=== PATIENT | male | born 1995 ===

== ENCOUNTER 2018-04-22 22:06 | Emergency (ER) | payer MEDICAID, OTHER | END 2018-04-23 00:15 | disposition left against medical advice (07) | LOC: DL.ED 22:06 | DX: Z53.21 Procedure and treatment not carried out due to patient leaving prior to being seen by health care provider (principal) ==

== ENCOUNTER 2018-04-23 11:21 | Emergency (ER) | payer MEDICAID, OTHER ==
[2018-04-23 11:30] VITALS: BP 130/75
--- NOTE | 2018-04-23 11:41 | EDM.PDOC ---
ED HPI GENERAL MEDICAL PROBLEM - General Chief Complaint: Chest Pain Stated Complaint: CHEST PAIN Time Seen by Provider: 04/23/18 11:40 Source of Information: Reports: Patient, RN, RN Notes Reviewed History Limitations: Reports: No Limitations - History of Present Illness INITIAL COMMENTS - FREE TEXT/NARRATIVE: Pt presents to ER from home by POV with c/o sharp chest pain that began yesterday while he was driving a car. When the pain began he felt like he had a slight fever, and felt slightly lightheaded. He states he has had a very slight cough, but no wheezing or sputum production. The chest pain is very sharp and is worse with breathing, coughing, and movement. Denies abdominal pain, leg/ calf pain or swelling, palpitations, shortness of breath, or syncope. Onset Date: 04/22/18 Duration: Constant, Waxing/Waning Location: Reports: Chest Quality: Reports: Sharp Severity: Severe Improves with: Reports: Other (swallow breathing) Worsens with: Reports: Breathing, Movement Context: Denies: Sick Contact Associated Symptoms: Reports: No Other Symptoms Mid-Sternal Chest Pain Score (Numeric/FACES): 10 - Related Data Allergies Allergy/AdvReac Type Severity Reaction Status Date / Time No Known Allergies Allergy Verified 04/23/18 11:30 Home Meds: Home Meds . [No Known Home Meds] 04/23/15 [History] Past Medical History - Past Health History Medical/Surgical History: Denies Medical/Surgical History Social & Family History - Family History Family Medical History: Noncontributory - Tobacco Use Smoking Status *Q: Never Smoker Second Hand Smoke Exposure: Yes - Alcohol Use Alcohol Use History: No - Recreational Drug Use Recreational Drug Use: No - Living Situation & Occupation Living situation: Reports: with Family Occupation: Student ED ROS GENERAL - Review of Systems Review Of Systems: ROS reveals no pertinent complaints other than HPI. ED EXAM, GENERAL - Physical Exam Exam: See Below Exam Limited By: No Limitations General Appearance: Alert, WD/WN, No Apparent Distress, Anxious Eye Exam: Bilateral Eye: Normal Inspection Ears: Normal External Exam, Normal Canal, Hearing Grossly Normal, Normal TMs Nose: Normal Inspection, Normal Mucosa, No Blood Throat/Mouth: Normal Inspection, Normal Lips, Normal Teeth, Normal Gums, Normal Oropharynx, Normal Voice, No Airway Compromise Head: Atraumatic, Normocephalic Neck: Normal Inspection, Supple, Non-Tender, Full Range of Motion. No: Lymphadenopathy (L), Lymphadenopathy (R) Respiratory/Chest: No Respiratory Distress, No Accessory Muscle Use, Decreased Breath Sounds, Splinting, Other (chest pain is reproduced by palpation). No: Crackles, Rales, Rhonchi, Wheezing, Stridor Cardiovascular: Normal Peripheral Pulses, Regular Rate, Rhythm, No Edema, No Gallop, No JVD, No Murmur, No Rub GI/Abdominal: Normal Bowel Sounds, Soft, Non-Tender, No Organomegaly, No Distention, No Abnormal Bruit, No Mass Back Exam: Normal Inspection, Full Range of Motion, NT Extremities: Normal Inspection, Normal Range of Motion, Non-Tender, No Pedal Edema, Normal Capillary Refill. No: Joint Swelling, Popeye's Sign Neurological: Alert, Oriented, CN II-XII Intact, Normal Cognition, Normal Gait, No Motor/Sensory Deficits Psychiatric: Anxious Skin Exam: Warm, Dry, Intact, Normal Color, No Rash EKG INTERPRETATION EKG Date: 04/23/18 Time: 11:28 Rhythm: Other (SR) [place]: Normal P-Wave: Present QRS: Normal ST-T: Normal QT: Normal Comparison: NA - No Prior EKG Course - Vital Signs Last Recorded V/S: Last Vital Signs Temp 37.3 C 04/23/18 11:25 Pulse 65 04/23/18 11:25 Resp 18 04/23/18 11:25 BP 130/75 04/23/18 11:25 Pulse Ox 100 04/23/18 11:25 - Orders/Labs/Meds Orders: Active Orders 24 hr Category Date Time Status EKG 12 Lead [EKG Documentation Completion] [RC] STAT Care 04/23/18 11:35 Active Peripheral IV Care [RC] . DIRECTED Care 04/23/18 11:55 Active CULTURE STREP A CONFIRMATION [] Stat Lab 04/23/18 12:10 Results DRUG SCREEN URINE BIORAD [URCHEM] Stat Lab 04/23/18 11:55 Ordered STREP SCRN A RAPID W CULT CONF [RM] Stat Lab 04/23/18 12:10 Results UA W/MICROSCOPIC [URIN] Stat Lab 04/23/18 11:54 Ordered Sodium Chloride 0.9% [Saline Flush] Med 04/23/18 11:55 Active 10 ml FLUSH ASDIRECTED PRN Peripheral IV Insertion Adult [OM.PC] Stat Oth 04/23/18 11:54 Ordered Medication Orders Sodium Chloride (Saline Flush) 10 ml FLUSH ASDIRECTED PRN PRN Reason: Keep Vein Open Labs: Laboratory Tests 04/23/18 04/23/18 04/23/18 Range/Units 12:06 12:06 12:06 WBC 6.4 (5.0-10.0) 10^3/uL RBC 4.87 (4.6-6.2) 10^6/uL Hgb 15.5 (14.0-18.0) g/dL Hct 44.2 (40.0-54.0) % MCV 90.8 (80-100) fL MCH 31.8 (27.0-34.0) pg MCHC 35.1 H (33.0-35.0) g/dL Plt Count 272 (150-450) 10^3/uL Neut % (Auto) 75.8 H (42.2-75.2) % Lymph % (Auto) 14.3 L (20.5-50.1) % [place] % (Auto) 8.3 H (2-8) % Eos % (Auto) 1.1 (1.0-3.0) % Baso % (Auto) 0.5 (0.0-1.0) % D-Dimer, Quantitative < 100 (0-400) ng/mL Sodium 135 (135-145) mmol/L Potassium 3.3 L (3.6-5.0) mmol/L Chloride 104 (101-111) mmol/L Carbon Dioxide 20.0 L (21.0-31.0) mmol/L Anion Gap 14.3 BUN 9 (7-18) mg/dL Creatinine 0.9 (0.6-1.3) mg/dL Est Cr Clr Drug Dosing 126.61 mL/min Estimated GFR (MDRD) > 60 BUN/Creatinine Ratio 10.00 Glucose 102 (74-105) mg/dL Calcium 8.8 (8.4-10.2) mg/dl Total Bilirubin 1.4 H (0.2-1.0) mg/dL AST 24 (10-42) IU/L ALT 15 (10-60) IU/L Alkaline Phosphatase 73 (42-121) IU/L Troponin I < 0.02 (0.00-0.02) ng/ml Total Protein 7.1 (6.7-8.2) g/dl Albumin 4.1 (3.2-5.5) g/dl Globulin 3.0 Albumin/Globulin Ratio 1.37 Meds: Medications Generic Name Dose Route Start Last Admin Trade Name Valentin PRN Reason Stop Dose Admin Sodium Chloride 10 ml 04/23/18 11:55 Saline Flush FLUSH ASDIRECTED PRN Keep Vein Open Discontinued Medications Generic Name Dose Route Start Last Admin Trade Name Freq PRN Reason Stop Dose Admin Sodium Chloride 1,000 mls @ 999 mls/hr 04/23/18 11:55 04/23/18 13:33 Normal Saline IV 04/23/18 12:55 999 mls/hr .BOLUS ONE Administration Ketorolac Tromethamine 30 mg 04/23/18 11:55 04/23/18 13:33 Toradol IVPUSH 04/23/18 11:56 30 mg ONETIME ONE Administration Methylprednisolone Sodium Succinate 125 mg 04/23/18 14:32 04/23/18 14:36 Solu-Medrol IVPUSH 04/23/18 14:33 125 mg ONETIME ONE Administration - Radiology Interpretation Free Text/Narrative:: CXR: no acute process per Rad. report. Departure - Departure Time of Disposition: 15:02 Disposition: Home, Self-Care 01 Condition: Good Clinical Impression: Pleurodynia Instructions: Pleurodynia Forms: ED Department Discharge Additional Instructions: Rx: Prednisone 20mg Follow up in clinic in 4 to 5 days for recheck. - My Orders Last 24 Hours: My Active Orders 04/23/18 11:35 EKG 12 Lead [EKG Documentation Completion] [RC] STAT 04/23/18 11:54 UA W/MICROSCOPIC [URIN] Stat Peripheral IV Insertion Adult [OM.PC] Stat 04/23/18 11:55 Peripheral IV Care [RC] . DIRECTED DRUG SCREEN URINE BIORAD [URCHEM] Stat Sodium Chloride 0.9% [Saline Flush] 10 ml FLUSH ASDIRECTED PRN 04/23/18 12:10 CULTURE STREP A CONFIRMATION [RM] Stat STREP SCRN A RAPID W CULT CONF [RM] Stat - Assessment/Plan Last 24 Hours: My Active Orders 04/23/18 11:35 EKG 12 Lead [EKG Documentation Completion] [RC] STAT 04/23/18 11:54 UA W/MICROSCOPIC [URIN] Stat Peripheral IV Insertion Adult [OM.PC] Stat 04/23/18 11:55 Peripheral IV Care [RC] . DIRECTED DRUG SCREEN URINE BIORAD [URCHEM] Stat Sodium Chloride 0.9% [Saline Flush] 10 ml FLUSH ASDIRECTED PRN 04/23/18 12:10 CULTURE STREP A CONFIRMATION [RM] Stat STREP SCRN A RAPID W CULT CONF [RM] Stat
[2018-04-23] MEDS ORDERED: Ketorolac 30 MG/ML SDV IVPUSH ONE (11:55)
[2018-04-23] MEDS ORDERED: Sodium Chloride 0.9% 10 ML Syringe FLUSH PRN (11:55)
[2018-04-23] MEDS ORDERED: Sodium Chloride 0.9% 1,000 ML IV ONE (11:55)
[2018-04-23 12:47] LABS: ANION GAP 14.3; CHLORIDE,CL 104 mmol/L (101-111); SODIUM,NA 135 mmol/L (135-145)
--- NOTE | 2018-04-23 13:42 | CR ---
Clinical history: 22-year-old male with chest pain. Interpretation: Negative exam. Upright AP portable chest film reveals no sign of rib fracture or lung contusion pleural effusion or pneumothorax. Normal cardiac silhouette and pulmonary vascularity. No alveolar edema. No lung mass, hilar lymphadenopathy or focal lobar pneumonia. CONCLUSION: No acute new cardiopulmonary abnormality since 23 April 2015 exam.
[2018-04-23] MEDS ORDERED: methylPREDNISolone Sodium Succinate 125 MG/2 ML SDV IVPUSH ONE (14:32)
== END 2018-04-23 15:17 | disposition home or self-care (01) ==
LOC: DL.ED 11:21
DX: R07.81 Pleurodynia (principal)
CPT/HCPCS: 36415; 71045; 80053; 84484; 85025; 85379; 87081; 87430; 87804; 93005; 96361; 96374; 96375; 99285; J1885; J2930; J7030